=== PATIENT | female | born 2000 | race Caucasian/White ===

== ENCOUNTER → 2018-04-11 | Outpatient (CLI) | payer OTHER ==
[2018-04-11 09:17] LABS: BASO % 0.2 % (0.0-1.0); EOS # 0.2 10^3/uL (0.0-0.50); EOS % 2.1 % (0.0-3.0); HEMATOCRIT 39.6 % (36.0-47.0); HEMOGLOBIN 12.9 g/dl (12.0-15.5); IMMATURE GRANULOCYTE % 0.3 % (0-3.0); LYMPH # 2.6 10^3/uL (1.5-6.5); LYMPH % 30.3 % (24.0-44.0); MEAN CORPUSCULAR HEMOGLOBIN 29.1 pg (27.0-33.0); MEAN CORPUSCULAR HGB CONC 32.6 g/dl (32.0-36.5); MEAN CORPUSCULAR VOLUME 89.2 fl (80.0-96.0); MONO # 0.6 10^3/uL (0.0-0.8); MONO % 6.9 % (0.0-5.0); NEUTROPHILS # 5.2 10^3/uL (1.8-7.7); NEUTROPHILS % 60.2 % (36.0-66.0); PLATELET COUNT, AUTOMATED 266 10^3/uL (150-450); RED BLOOD COUNT 4.44 10^6/uL (4.00-5.40); RED CELL DISTRIBUTION WIDTH 11.6 % (11.5-14.5); WHITE BLOOD COUNT 8.7 10^3/uL (4.0-10.0)
[2018-04-11 09:51] LABS: ALBUMIN 3.8 GM/DL (3.2-5.2); ALBUMIN/GLOBULIN RATIO 1.15 (1.00-1.93); ALKALINE PHOSPHATASE 64 U/L (45-117); ALT/SGPT 19 U/L (12-78); ANION GAP 9 MEQ/L (8-16); AST/SGOT 10 U/L (7-37); BILIRUBIN,TOTAL 0.4 MG/DL (0.2-1.0); BLOOD UREA NITROGEN 8 MG/DL (7-18); CALCIUM LEVEL 8.8 MG/DL (8.5-10.1); CARBON DIOXIDE LEVEL 27 MEQ/L (21-32); CHLORIDE LEVEL 106 MEQ/L (98-107); CHOLESTEROL LEVEL 156 MG/DL (<200); CHOLESTEROL RISK RATIO 2.557 (<5); CREATININE FOR GFR 0.76 MG/DL (0.55-1.30); GLUCOSE, FASTING 114 MG/DL (70-100); HDL CHOLESTEROL 61 MG/DL (>40); LDL CHOLESTEROL 83.2 MG/DL (<100); NON-HDL-C 95 MG/DL; POTASSIUM SERUM 4.4 MEQ/L (3.5-5.1); SODIUM LEVEL 142 MEQ/L (136-145); THYROID STIMULATING HORMONE 0.982 uIU/ML (0.463-3.98); TOTAL PROTEIN 7.1 GM/DL (6.4-8.2); TRIGLYCERIDES LEVEL 59 MG/DL (<150)
== END ==
LOC: M LAB 08:08
DX: Z00.00 Encounter for general adult medical examination without abnormal findings (principal)
CPT/HCPCS: 84443

== ENCOUNTER → 2019-11-26 | Outpatient (REF) | payer OTHER ==
[2019-11-26 12:33] LABS: FOLLICLE STIMULATING HORMONE 6.2 mIU/mL; FREE T4 1.06 NG/DL (0.76-1.46); LUTEINIZING HORMONE 2.4 mIU/mL; THYROID STIMULATING HORMONE 0.602 uIU/ML (0.358-3.740)
[2019-11-26 19:31] LABS: HEMOGLOBIN A1c 8.9 %
== END ==
LOC: M PLALAB 10:28
PROVIDERS: ATTEND Nurse Practitioner Women's Health
DX: N92.6 Irregular menstruation, unspecified (principal)

== ENCOUNTER → 2019-11-27 | Outpatient (CLI) | payer OTHER ==
--- NOTE | 2019-11-28 07:58 | REP ---
Clinical: Irregular menstrual cycles. Technique: Transabdominal pelvic ultrasound with color Doppler evaluation of the ovaries. Findings: Bladder is normal and measures 14.5 x 11.6 x 6.1 cm. Normal anteverted uterus measures 7.3 x 3.5 x 4.7 cm. Endometrial complex measures 3.0 mm thickness. No discrete uterine or endometrial abnormalities appreciated. Bilateral ovaries are normal in appearance and vascularity without torsion. Right ovary measures 3.6 x 1.9 x 3.2 cm (RI 0.55). Left ovary measures 3.2 x 1.6 x 2.5 cm (RI 0.60). No pelvic fluid or adnexal mass lesion. Impression: Normal pelvic ultrasound.
== END ==
LOC: M WHC 14:32
PROVIDERS: ATTEND Nurse Practitioner Women's Health
DX: N92.6 Irregular menstruation, unspecified (principal)

== ENCOUNTER 2023-10-07 11:43 | Inpatient (IN) | payer BC, OTHER ==
[~2023-10-07] VITALS: Ht 172.7 cm; Wt 73.2 kg
[2023-10-07] MEDS ORDERED: NS 1,000 ML IV ONE ×3 (12:10→15:00)
[2023-10-07] MEDS ORDERED: ONDANSETRON 4MG 2ML VIAL IV ONE (12:45)
[2023-10-07 12:51] LABS: VENOUS BASE EXCESS -23.8 (-2.0-2.0); VENOUS HCO3 5.9 MMOL/L (23.0-27.0); VENOUS O2 SATURATION 64.8 % (60.0-80.0); VENOUS PARTIAL PRESSURE CO2 23.4 mmHg (38.0-50.0); VENOUS PARTIAL PRESSURE O2 36.1 mmHg (30.0-50.0); VENOUS PH 7.016 UNITS (7.330-7.430); VENOUS TOTAL CO2 6.6 MMOL/L (24.0-28.0)
[2023-10-07 12:54] LABS: BASO # 0.1 10^3/uL (0.0-0.2); BASO % 0.7 % (0.0-1.0); EOS % 0.2 % (0.0-3.0); HEMATOCRIT 47.4 % (36.0-47.0); HEMOGLOBIN 15.2 g/dl (12.0-15.5); LYMPH # 1.4 10^3/uL (1.5-5.0); LYMPH % 13.1 % (24.0-44.0); MEAN CORPUSCULAR HGB CONC 32.1 g/dl (32.0-36.5); MONO # 0.4 10^3/uL (0.0-0.8); MONO % 3.9 % (2.0-8.0); NEUTROPHILS # 8.3 10^3/uL (1.5-8.5); NEUTROPHILS % 80.5 % (36.0-66.0); PLATELET COUNT, AUTOMATED 532 10^3/uL (150-450); WHITE BLOOD COUNT 10.4 10^3/uL (4.0-10.0)
[2023-10-07 13:13] LABS: HCG, SERUM QUALITATIVE NEGATIVE (NEGATIVE); LIPASE 65 U/L (12-53)
[2023-10-07] MEDS ORDERED: INSULIN REGULAR IN 0.9 % NACL 100 UNIT in IV 1 EA IV SCH ×6 (13:15→14:25)
[2023-10-07] MEDS ORDERED: INSULIN IV RATE CHANGE DOCUMENTATION ML/HR XX SCH ×3 (13:15→14:25)
[2023-10-07 13:18] LABS: ACETONE/KETONE > 4.50 MMOL/L (0.02-0.27)
[2023-10-07 13:22] LABS: HEMOGLOBIN A1c 9.5 % (4.0-6.0)
[2023-10-07 13:23] LABS: OSMOLALITY SERUM 335 MOSM/KG (275-295)
[2023-10-07 13:32] LABS: SALICYLATE LEVEL < 3.0 MG/DL (<30)
[2023-10-07 13:35] LABS: ALKALINE PHOSPHATASE 247 U/L (46-116); ALT/SGPT 54 U/L (7.0-40); AST/SGOT 32 U/L (<34); BILIRUBIN,DIRECT < 0.1 MG/DL (<0.4); BILIRUBIN,TOTAL 0.2 MG/DL (0.3-1.2); BLOOD UREA NITROGEN 14 MG/DL (9-23); CALCIUM LEVEL 9.3 MG/DL (8.5-10.1); CARBON DIOXIDE LEVEL < 10.0 MMOL/L (20-31); CHLORIDE LEVEL 101 MMOL/L (98-107); CREATININE FOR GFR 0.87 MG/DL (0.55-1.30); GLOMERULAR FILTRATION RATE > 60.0 (>60); GLUCOSE, FASTING 240 MG/DL (60-100); PHOSPHORUS LEVEL 4.5 MG/DL (2.5-4.9); POTASSIUM SERUM 4.2 MMOL/L (3.5-5.1); SODIUM LEVEL 133 MMOL/L (136-145); TOTAL PROTEIN 8.4 G/DL (5.7-8.2)
[2023-10-07] MEDS ORDERED: MED REC IN PROGRESS XX SCH (14:05)
[2023-10-07] MEDS: D5W/0.45% SODIUM CHLORIDE 1,000 ML IV SCH ×2 (14:32→16:09)
[2023-10-07] MEDS ORDERED: HUMA100I5 SC (14:35)
[2023-10-07] MEDS ORDERED: VITAD400CA PO (14:35)
[2023-10-07] MEDS ORDERED: BASA100I SC (14:35)
[2023-10-07] MEDS ORDERED: ATOR1TAB21 PO (14:35)
[2023-10-07] MEDS ORDERED: MULT-90 PO (14:35)
[2023-10-07] MEDS ORDERED: HOME MED LIST COMPLETE! XX SCH (14:45)
[2023-10-07 16:00] VITALS: BP 112/58; TEMP 98.9; O2SAT 100
[2023-10-07] MEDS ORDERED: DEXTROSE 50% 50ML SYRINGE IV STA (17:03)
[2023-10-07] MEDS: D10W/0.45% SODIUM CHLORIDE 1,000 ML IV SCH (17:56)
[2023-10-07 18:02] LABS: BLOOD UREA NITROGEN 10 MG/DL (9-23); CALCIUM LEVEL 7.4 MG/DL (8.5-10.1); CARBON DIOXIDE LEVEL 16 MMOL/L (20-31); CHLORIDE LEVEL 109 MMOL/L (98-107); CREATININE FOR GFR 0.66 MG/DL (0.55-1.30); GLOMERULAR FILTRATION RATE > 60.0 (>60); GLUCOSE, FASTING 331 MG/DL (60-100); PHOSPHORUS LEVEL 1.8 MG/DL (2.5-4.9); POTASSIUM SERUM 3.7 MMOL/L (3.5-5.1); SODIUM LEVEL 136 MMOL/L (136-145)
[2023-10-07] MEDS ORDERED: INSULIN LISPRO (NovoLOG) PER UNIT SC ONE (18:35)
[2023-10-07] MEDS ORDERED: CALCIUM GLUCONATE 1,000 MG in D5W MINI-BAG PLUS 100 ML IV ONE (19:00)
[2023-10-07] MEDS ORDERED: KCL 10MEQ/100ML SWI (KRUN) 10 MEQ in IV 1 EA IV SCH (19:00)
[2023-10-07] MEDS ORDERED: LEVEMIR (INSULIN DETEMIR) 1 UNITS/0.01ML SC SCH (19:00)
[2023-10-07] MEDS: POTASSIUM CHLORIDE 10% LIQ 20MEQ/15ML UDC PO SCH ×2 (19:25→21:26)
[2023-10-07 19:30] VITALS: BP 100/58; TEMP 99; O2SAT 100
[2023-10-07] MEDS ORDERED: BENZONATATE 100MG CAPSULE PO ONE (19:45)
[2023-10-07] MEDS ORDERED: AZELASTINE 137MCG NASAL SPY 30 ML (ASTELIN) ONE (19:50)
[2023-10-07] MEDS ORDERED: ACETAMINOPHEN TAB 650MG DOSE (2X325MG) PO ONE (19:50)
[2023-10-07] MEDS: ENOXAPARIN 40MG/0.4ML SYRINGE (J1650 PER 10MG) SC SCH (20:32)
[2023-10-07] MEDS ORDERED: SODIUM PHOSPHATE INJ 20 MMOL in D5W 250 ML IV ONE (21:00)
[2023-10-07] MEDS ORDERED: ATORVASTATIN 20 MG TAB PO SCH (21:00)
[2023-10-07 22:00] LABS: BLOOD UREA NITROGEN 9 MG/DL (9-23); CALCIUM LEVEL 8.7 MG/DL (8.5-10.1); CARBON DIOXIDE LEVEL 11 MMOL/L (20-31); CHLORIDE LEVEL 109 MMOL/L (98-107); CREATININE FOR GFR 0.72 MG/DL (0.55-1.30); GLOMERULAR FILTRATION RATE > 60.0 (>60); GLUCOSE, FASTING 150 MG/DL (60-100); PHOSPHORUS LEVEL 2.6 MG/DL (2.5-4.9); POTASSIUM SERUM 4.5 MMOL/L (3.5-5.1); SODIUM LEVEL 137 MMOL/L (136-145)
[2023-10-07 23:39] VITALS: BP 107/51; TEMP 98.7; O2SAT 100
[2023-10-08 01:31] LABS: BLOOD UREA NITROGEN 7 MG/DL (9-23); CALCIUM LEVEL 8.6 MG/DL (8.5-10.1); CARBON DIOXIDE LEVEL 15 MMOL/L (20-31); CHLORIDE LEVEL 109 MMOL/L (98-107); CREATININE FOR GFR 0.63 MG/DL (0.55-1.30); GLOMERULAR FILTRATION RATE > 60.0 (>60); GLUCOSE, FASTING 171 MG/DL (60-100); PHOSPHORUS LEVEL 4.2 MG/DL (2.5-4.9); POTASSIUM SERUM 4.2 MMOL/L (3.5-5.1); SODIUM LEVEL 138 MMOL/L (136-145)
[2023-10-08] MEDS: D10W/0.45% SODIUM CHLORIDE 1,000 ML IV SCH ×2 (02:15→08:36)
[2023-10-08] MEDS ORDERED: INSULIN REGULAR IN 0.9 % NACL 100 UNIT in IV 1 EA IV SCH ×2 (02:16)
[2023-10-08 04:19] VITALS: BP 113/59; TEMP 98; O2SAT 100
[2023-10-08 05:03] LABS: BLOOD UREA NITROGEN 6 MG/DL (9-23); CALCIUM LEVEL 8.9 MG/DL (8.5-10.1); CARBON DIOXIDE LEVEL 16 MMOL/L (20-31); CHLORIDE LEVEL 107 MMOL/L (98-107); CREATININE FOR GFR 0.58 MG/DL (0.55-1.30); GLOMERULAR FILTRATION RATE > 60.0 (>60); GLUCOSE, FASTING 147 MG/DL (60-100); POTASSIUM SERUM 3.9 MMOL/L (3.5-5.1); SODIUM LEVEL 139 MMOL/L (136-145)
[2023-10-08 07:15] VITALS: BP 101/59; TEMP 97.7; O2SAT 100
[2023-10-08 07:49] LABS: CHOLESTEROL LEVEL 247 MG/DL (<200); CHOLESTEROL RISK RATIO 6.38 (<5); HDL CHOLESTEROL 38.7 MG/DL (>40); NON-HDL-C 208.3 MG/DL; TRIGLYCERIDES LEVEL 457 MG/DL (<150)
[2023-10-08] MEDS ORDERED: LEVEMIR (INSULIN DETEMIR) 1 UNITS/0.01ML SC SCH ×2 (09:00→21:00)
[2023-10-08] MEDS ORDERED: OMEGA-3 1000MG CAPSULE PO SCH ×2 (09:00→21:00)
[2023-10-08 09:20] LABS: BLOOD UREA NITROGEN 5 MG/DL (9-23); CALCIUM LEVEL 8.9 MG/DL (8.5-10.1); CARBON DIOXIDE LEVEL 19 MMOL/L (20-31); CHLORIDE LEVEL 106 MMOL/L (98-107); CREATININE FOR GFR 0.54 MG/DL (0.55-1.30); GLOMERULAR FILTRATION RATE > 60.0 (>60); GLUCOSE, FASTING 153 MG/DL (60-100); POTASSIUM SERUM 4.1 MMOL/L (3.5-5.1); SODIUM LEVEL 138 MMOL/L (136-145)
[2023-10-08 11:18] VITALS: BP 126/65; TEMP 98.4; O2SAT 100
[2023-10-08] MEDS ORDERED: GLUCOSE 4GM CHEW TABLET PO PRN (11:25)
[2023-10-08] MEDS ORDERED: GLUCAGON INJ 1MG VIAL SC PRN (11:25)
[2023-10-08] MEDS ORDERED: DEXTROSE 50% 50ML SYRINGE IV PRN (11:25)
[2023-10-08] MEDS: INSULIN LISPRO (NovoLOG) PER UNIT SC SCH ×2 (12:07→17:30)
[2023-10-08 12:37] LABS: BLOOD UREA NITROGEN 6 MG/DL (9-23); CALCIUM LEVEL 8.8 MG/DL (8.5-10.1); CARBON DIOXIDE LEVEL 20 MMOL/L (20-31); CHLORIDE LEVEL 106 MMOL/L (98-107); CREATININE FOR GFR 0.66 MG/DL (0.55-1.30); GLOMERULAR FILTRATION RATE > 60.0 (>60); GLUCOSE, FASTING 188 MG/DL (60-100); POTASSIUM SERUM 3.7 MMOL/L (3.5-5.1); SODIUM LEVEL 138 MMOL/L (136-145)
[2023-10-08 15:46] VITALS: BP 125/63; TEMP 98.9; O2SAT 100
[2023-10-08 17:35] LABS: BLOOD UREA NITROGEN 9 MG/DL (9-23); CALCIUM LEVEL 9.3 MG/DL (8.5-10.1); CARBON DIOXIDE LEVEL 24 MMOL/L (20-31); CHLORIDE LEVEL 105 MMOL/L (98-107); CREATININE FOR GFR 0.59 MG/DL (0.55-1.30); GLOMERULAR FILTRATION RATE > 60.0 (>60); GLUCOSE, FASTING 75 MG/DL (60-100); POTASSIUM SERUM 3.3 MMOL/L (3.5-5.1); SODIUM LEVEL 137 MMOL/L (136-145)
[2023-10-08] MEDS ORDERED: POTASSIUM CHLORIDE 10MEQ SR TABLET PO ONE (19:00)
[2023-10-08 20:00] VITALS: BP 117/62; TEMP 99; O2SAT 100
[2023-10-08] MEDS ORDERED: INSULIN LISPRO (NovoLOG) PER UNIT SC ONE (20:55)
[2023-10-08] MEDS ORDERED: ATORVASTATIN 20 MG TAB PO SCH ×2 (21:00)
[2023-10-08] MEDS: ENOXAPARIN 40MG/0.4ML SYRINGE (J1650 PER 10MG) SC SCH (21:00)
[2023-10-08] MEDS ORDERED: INSULIN LISPRO (NovoLOG) PER UNIT SC SCH (21:00)
[2023-10-09 06:01] LABS: BLOOD UREA NITROGEN 7 MG/DL (9-23); CALCIUM LEVEL 8.9 MG/DL (8.5-10.1); CARBON DIOXIDE LEVEL 24 MMOL/L (20-31); CHLORIDE LEVEL 105 MMOL/L (98-107); CREATININE FOR GFR 0.48 MG/DL (0.55-1.30); GLOMERULAR FILTRATION RATE > 60.0 (>60); GLUCOSE, FASTING 180 MG/DL (60-100); POTASSIUM SERUM 3.8 MMOL/L (3.5-5.1); SODIUM LEVEL 139 MMOL/L (136-145)
[2023-10-09] MEDS: INSULIN LISPRO (NovoLOG) PER UNIT SC SCH ×2 (08:31→12:46)
[2023-10-09 08:39] VITALS: BP 114/62; TEMP 97.6; O2SAT 97
[2023-10-09] MEDS ORDERED: LEVEMIR (INSULIN DETEMIR) 1 UNITS/0.01ML SC SCH (09:00)
[2023-10-09] MEDS ORDERED: OLANZapine 2.5MG TABLET PO ONE (15:15)
[2023-10-09] MEDS ORDERED: ADME100I SC ×3 (15:19→15:43)
[2023-10-09] MEDS ORDERED: FISH1CAP26 PO (15:19)
== END 2023-10-09 16:30 | disposition home or self-care (01) | DRG 420 ==
LOC: M ED 11:43 → M ED INP 13:58 → M ICU 15:51
PROVIDERS: ADMIT Internal Medicine Pulmonary Disease; ATTEND Internal Medicine
DX: E10.10 Type 1 diabetes mellitus with ketoacidosis without coma (principal); E78.1 Pure hyperglyceridemia; Z79.4 Long term (current) use of insulin; Z79.899 Other long term (current) drug therapy; E78.5 Hyperlipidemia, unspecified

== ENCOUNTER 2024-04-01 07:56 | Inpatient (IN) | payer BC ==
[2024-04-01] VITALS (31 sets, daily range): BP systolic 124–149; BP diastolic 61–97; TEMP 97.9–98.2; O2SAT 97–100
[~2024-04-01] VITALS: Ht 172.7 cm; Wt 74.2 kg
[~2024-04-01 07:56] MED LIST: ADME100I SC; ATOR1TAB21 PO; BASA100I SC; FISH1CAP26 PO; HUMA100I5 SC; MULT-90 PO; VITAD400CA PO
[2024-04-01] MEDS: NS 1,000 ML IV ONE ×2 (08:47→11:27)
[2024-04-01 08:57] LABS: VENOUS BASE EXCESS -26.8 (-2.0-2.0); VENOUS HCO3 3.3 MMOL/L (23.0-27.0); VENOUS O2 SATURATION 97.4 % (60.0-80.0); VENOUS PARTIAL PRESSURE CO2 14.7 mmHg (38.0-50.0); VENOUS PARTIAL PRESSURE O2 119.7 mmHg (30.0-50.0); VENOUS PH 6.971 UNITS (7.330-7.430); VENOUS STANDARD HCO3 7.1 MMOL/L; VENOUS TOTAL CO2 3.8 MMOL/L (24.0-28.0)
[2024-04-01] MEDS ORDERED: INSULIN IV RATE CHANGE DOCUMENTATION ML/HR XX SCH ×3 (09:15→12:45)
[2024-04-01 09:19] LABS: BASO # 0.1 10^3/uL (0.0-0.2); BASO % 0.5 % (0.0-1.0); HEMATOCRIT 48.8 % (36.0-47.0); HEMOGLOBIN 15.7 g/dl (12.0-15.5); LYMPH # 2.2 10^3/uL (1.5-5.0); LYMPH % 13.8 % (24.0-44.0); MEAN CORPUSCULAR HEMOGLOBIN 32.4 pg (27.0-33.0); MEAN CORPUSCULAR HGB CONC 32.2 g/dl (32.0-36.5); MEAN CORPUSCULAR VOLUME 100.8 fl (80.0-96.0); MONO # 0.6 10^3/uL (0.0-0.8); MONO % 3.8 % (2.0-8.0); NEUTROPHILS # 12.5 10^3/uL (1.5-8.5); NEUTROPHILS % 79.9 % (36.0-66.0); PLATELET COUNT, AUTOMATED 518 10^3/uL (150-450); RED BLOOD COUNT 4.84 10^6/uL (4.00-5.40); WHITE BLOOD COUNT 15.6 10^3/uL (4.0-10.0)
[2024-04-01 09:26] LABS: HEMOGLOBIN A1c 11.7 % (4.0-6.0)
[2024-04-01 09:27] LABS: ETHYL ALCOHOL (ETHANOL) 0.004 % (0.000-0.010)
[2024-04-01 09:28] LABS: SALICYLATE LEVEL < 3.0 MG/DL (<30)
[2024-04-01 09:35] LABS: OSMOLALITY SERUM 351 MOSM/KG (275-295)
[2024-04-01 09:39] LABS: ACETONE/KETONE > 4.50 MMOL/L (0.02-0.27); ALBUMIN 3.9 G/DL (3.2-5.2); ALKALINE PHOSPHATASE 276 U/L (46-116); ALT/SGPT 85 U/L (7.0-40); AST/SGOT 79 U/L (<34); BILIRUBIN,DIRECT < 0.1 MG/DL (<0.4); BILIRUBIN,TOTAL 0.3 MG/DL (0.3-1.2); BLOOD UREA NITROGEN 26 MG/DL (9-23); CALCIUM LEVEL 9.4 MG/DL (8.5-10.1); CARBON DIOXIDE LEVEL < 10.0 MMOL/L (20-31); CHLORIDE LEVEL 97 MMOL/L (98-107); CREATININE FOR GFR 1.04 MG/DL (0.55-1.30); GLOMERULAR FILTRATION RATE > 60.0 (>60); GLUCOSE, FASTING 614 MG/DL (60-100); LIPASE 26 U/L (12-53); MAGNESIUM LEVEL 2.2 MG/DL (1.8-2.4); POTASSIUM SERUM 5.4 MMOL/L (3.5-5.1); SODIUM LEVEL 133 MMOL/L (136-145); TOTAL PROTEIN 8.1 G/DL (5.7-8.2)
[2024-04-01] MEDS: HumuLIN R (REGULAR) INSULIN (NovoLIN R) **100U/ML** PER UNIT IV ONE (10:00)
[2024-04-01] MEDS: INSULIN REGULAR IN 0.9 % NACL 100 UNIT in IV 1 EA IV SCH ×2 (10:01→13:04)
[2024-04-01 10:29] LABS: AMPHETAMINES LEVEL URINE NEGATIVE (NEGATIVE); BARBITURATES URINE NEGATIVE (NEGATIVE); BENZODIAZEPINES URINE NEGATIVE (NEGATIVE); CANNABINOIDS URINE NEGATIVE (NEGATIVE); COCAINE METABOLITE URINE NEGATIVE (NEGATIVE); METHADONE URINE NEGATIVE (NEGATIVE); OPIATES URINE NEGATIVE (NEGATIVE); PHENCYCLIDINE URINE NEGATIVE (NEGATIVE)
[2024-04-01] MEDS ORDERED: D5W/0.9% SODIUM CHLORIDE 1,000 ML IV SCH (11:10)
[2024-04-01] MEDS ORDERED: D31000CA4 PO (11:19)
[2024-04-01] MEDS ORDERED: INSULADS INJ (11:19)
[2024-04-01] MEDS ORDERED: CALC500T61 PO (11:21)
[2024-04-01] MEDS ORDERED: ALBUTEROL SULFATE 2.5MG/0.5ML INH NEB SOLN NEB PRN (11:35)
[2024-04-01] MEDS ORDERED: INSULIN REGULAR IN 0.9 % NACL 100 UNIT in IV 1 EA IV SCH (11:45)
[2024-04-01 11:50] LABS: VENOUS BASE EXCESS -20.1 (-2.0-2.0); VENOUS HCO3 7.2 MMOL/L (23.0-27.0); VENOUS PARTIAL PRESSURE O2 44.6 mmHg (30.0-50.0); VENOUS PH 7.131 UNITS (7.330-7.430); VENOUS STANDARD HCO3 10.1 MMOL/L; VENOUS TOTAL CO2 7.8 MMOL/L (24.0-28.0)
[2024-04-01] MEDS: LR 1,000 ML IV ONE (12:01)
[2024-04-01] MEDS ORDERED: INSUHUMDS SC (12:19)
[2024-04-01] MEDS ORDERED: HOME MED LIST COMPLETE! XX SCH (12:20)
[2024-04-01] MEDS: ENOXAPARIN 40MG/0.4ML SYRINGE (J1650 PER 10MG) SC SCH (12:28)
[2024-04-01 12:29] LABS: BLOOD UREA NITROGEN 23 MG/DL (9-23); CALCIUM LEVEL 8.9 MG/DL (8.5-10.1); CARBON DIOXIDE LEVEL < 10.0 MMOL/L (20-31); CHLORIDE LEVEL 106 MMOL/L (98-107); CREATININE FOR GFR 1.02 MG/DL (0.55-1.30); GLOMERULAR FILTRATION RATE > 60.0 (>60); GLUCOSE, FASTING 104 MG/DL (60-100); POTASSIUM SERUM 4.5 MMOL/L (3.5-5.1); SODIUM LEVEL 139 MMOL/L (136-145)
[2024-04-01] MEDS: KCL 20MEQ IN D5/0.45NS 1000ML 1,000 ML IV SCH (13:02)
[2024-04-01 13:54] LABS: VENOUS BASE EXCESS -12.7 (-2.0-2.0); VENOUS HCO3 11.5 MMOL/L (23.0-27.0); VENOUS O2 SATURATION 99.3 % (60.0-80.0); VENOUS PARTIAL PRESSURE CO2 23.3 mmHg (38.0-50.0); VENOUS PARTIAL PRESSURE O2 147.7 mmHg (30.0-50.0); VENOUS PH 7.311 UNITS (7.330-7.430); VENOUS STANDARD HCO3 14.8 MMOL/L; VENOUS TOTAL CO2 12.2 MMOL/L (24.0-28.0)
[2024-04-01 17:07] LABS: BLOOD UREA NITROGEN 18 MG/DL (9-23); CALCIUM LEVEL 8.9 MG/DL (8.5-10.1); CARBON DIOXIDE LEVEL 15 MMOL/L (20-31); CHLORIDE LEVEL 110 MMOL/L (98-107); CREATININE FOR GFR 0.71 MG/DL (0.55-1.30); GLOMERULAR FILTRATION RATE > 60.0 (>60); GLUCOSE, FASTING 101 MG/DL (60-100); SODIUM LEVEL 141 MMOL/L (136-145)
[2024-04-01] MEDS: INSULIN LISPRO (NovoLOG) PER UNIT SC SCH ×2 (18:00→21:00)
[2024-04-01 19:38] LABS: BLOOD UREA NITROGEN 16 MG/DL (9-23); CALCIUM LEVEL 8.8 MG/DL (8.5-10.1); CARBON DIOXIDE LEVEL 16 MMOL/L (20-31); CHLORIDE LEVEL 111 MMOL/L (98-107); CREATININE FOR GFR 0.71 MG/DL (0.55-1.30); GLOMERULAR FILTRATION RATE > 60.0 (>60); GLUCOSE, FASTING 122 MG/DL (60-100); SODIUM LEVEL 141 MMOL/L (136-145)
[2024-04-01] MEDS ORDERED: GLUCAGON INJ 1MG VIAL SC PRN (20:10)
[2024-04-01] MEDS ORDERED: DEXTROSE 50% 50ML SYRINGE IV PRN (20:10)
[2024-04-01] MEDS ORDERED: GLUCOSE 4 GM CHEW PO PRN (20:10)
[2024-04-01] MEDS: LEVEMIR (INSULIN DETEMIR) 1 UNITS/0.01ML SC SCH (20:32)
[2024-04-01 22:55] LABS: BLOOD UREA NITROGEN 14 MG/DL (9-23); CALCIUM LEVEL 8.1 MG/DL (8.5-10.1); CARBON DIOXIDE LEVEL 16 MMOL/L (20-31); CHLORIDE LEVEL 109 MMOL/L (98-107); CREATININE FOR GFR 0.63 MG/DL (0.55-1.30); GLOMERULAR FILTRATION RATE > 60.0 (>60); GLUCOSE, FASTING 229 MG/DL (60-100); POTASSIUM SERUM 4.1 MMOL/L (3.5-5.1); SODIUM LEVEL 138 MMOL/L (136-145)
[2024-04-02] VITALS (30 sets, daily range): BP systolic 116–143; BP diastolic 55–84; TEMP 97.1–98; O2SAT 97–100
[2024-04-02 05:25] LABS: BASO % 0.2 % (0.0-1.0); EOS # 0.1 10^3/uL (0.0-0.5); EOS % 0.6 % (0.0-3.0); LYMPH # 2.5 10^3/uL (1.5-5.0); LYMPH % 28.1 % (24.0-44.0); MEAN CORPUSCULAR HEMOGLOBIN 31.9 pg (27.0-33.0); MEAN CORPUSCULAR HGB CONC 33.5 g/dl (32.0-36.5); MEAN CORPUSCULAR VOLUME 95.1 fl (80.0-96.0); MONO # 0.9 10^3/uL (0.0-0.8); MONO % 9.8 % (2.0-8.0); NEUTROPHILS # 5.4 10^3/uL (1.5-8.5); NEUTROPHILS % 60.6 % (36.0-66.0); RED BLOOD COUNT 3.67 10^6/uL (4.00-5.40); WHITE BLOOD COUNT 8.9 10^3/uL (4.0-10.0)
[2024-04-02 05:36] LABS: HEMATOCRIT 34.9 % (36.0-47.0); HEMOGLOBIN 11.7 g/dl (12.0-15.5); PLATELET COUNT, AUTOMATED 271 10^3/uL (150-450)
[2024-04-02 06:04] LABS: ALBUMIN 2.6 G/DL (3.2-5.2); ALKALINE PHOSPHATASE 176 U/L (46-116); ALT/SGPT 54 U/L (7.0-40); AST/SGOT 57 U/L (<34); BILIRUBIN,TOTAL 0.4 MG/DL (0.3-1.2); BLOOD UREA NITROGEN 12 MG/DL (9-23); CALCIUM LEVEL 8.9 MG/DL (8.5-10.1); CARBON DIOXIDE LEVEL 19 MMOL/L (20-31); CHLORIDE LEVEL 111 MMOL/L (98-107); CREATININE FOR GFR 0.64 MG/DL (0.55-1.30); GLOMERULAR FILTRATION RATE > 60.0 (>60); GLUCOSE, FASTING 74 MG/DL (60-100); MAGNESIUM LEVEL 1.8 MG/DL (1.8-2.4); PHOSPHORUS LEVEL 2.5 MG/DL (2.5-4.9); SODIUM LEVEL 140 MMOL/L (136-145); TOTAL PROTEIN 5.3 G/DL (5.7-8.2)
[2024-04-02] MEDS: POTASSIUM CHLORIDE 10MEQ SR TABLET PO ONE ×2 (08:04→10:44)
[2024-04-02 13:58] LABS: BLOOD UREA NITROGEN 15 MG/DL (9-23); CALCIUM LEVEL 9.5 MG/DL (8.5-10.1); CARBON DIOXIDE LEVEL 19 MMOL/L (20-31); CHLORIDE LEVEL 107 MMOL/L (98-107); CREATININE FOR GFR 0.63 MG/DL (0.55-1.30); GLOMERULAR FILTRATION RATE > 60.0 (>60); GLUCOSE, FASTING 142 MG/DL (60-100); POTASSIUM SERUM 3.6 MMOL/L (3.5-5.1); SODIUM LEVEL 137 MMOL/L (136-145)
[2024-04-02] MEDS: LEVEMIR (INSULIN DETEMIR) 1 UNITS/0.01ML SC SCH (21:03)
[2024-04-03] VITALS: TEMP 97.4; O2SAT 98
[2024-04-03 04:00] VITALS: BP 124/79; TEMP 97.9; O2SAT 98
[2024-04-03 05:19] LABS: BASO % 0.4 % (0.0-1.0); EOS # 0.1 10^3/uL (0.0-0.5); EOS % 1.4 % (0.0-3.0); HEMATOCRIT 34.3 % (36.0-47.0); HEMOGLOBIN 11.3 g/dl (12.0-15.5); LYMPH % 49.4 % (24.0-44.0); MEAN CORPUSCULAR HEMOGLOBIN 31.4 pg (27.0-33.0); MEAN CORPUSCULAR HGB CONC 32.9 g/dl (32.0-36.5); MEAN CORPUSCULAR VOLUME 95.3 fl (80.0-96.0); MONO # 0.6 10^3/uL (0.0-0.8); NEUTROPHILS # 3.3 10^3/uL (1.5-8.5); NEUTROPHILS % 41.3 % (36.0-66.0); PLATELET COUNT, AUTOMATED 261 10^3/uL (150-450)
[2024-04-03 05:56] LABS: HEPATITIS B SURFACE ANTIGEN NEGATIVE (NEGATIVE)
[2024-04-03 06:03] LABS: ALBUMIN 2.8 G/DL (3.2-5.2); ALKALINE PHOSPHATASE 180 U/L (46-116); ALT/SGPT 65 U/L (7.0-40); AST/SGOT 79 U/L (<34); BILIRUBIN,TOTAL 0.3 MG/DL (0.3-1.2); BLOOD UREA NITROGEN 16 MG/DL (9-23); CALCIUM LEVEL 8.9 MG/DL (8.5-10.1); CARBON DIOXIDE LEVEL 23 MMOL/L (20-31); CHLORIDE LEVEL 110 MMOL/L (98-107); CREATININE FOR GFR 0.61 MG/DL (0.55-1.30); GLOMERULAR FILTRATION RATE > 60.0 (>60); GLUCOSE, FASTING 50 MG/DL (60-100); SODIUM LEVEL 143 MMOL/L (136-145); TOTAL PROTEIN 5.6 G/DL (5.7-8.2)
[2024-04-03 06:15] LABS: HEPATITIS B CORE ANTIBODY IGM NEGATIVE (NEGATIVE)
[2024-04-03 06:16] LABS: HEPATITIS C VIRUS ABY INDEX < 0.02 INDEX (<0.8)
[2024-04-03] MEDS: POTASSIUM CHLORIDE 10MEQ SR TABLET PO ONE ×2 (06:31→08:47)
[2024-04-03 07:50] VITALS: BP 125/80; TEMP 97; O2SAT 95
[2024-04-03 11:32] VITALS: BP 126/83; TEMP 97; O2SAT 97
[2024-04-03] MEDS ORDERED: LANC1COM MC (12:01)
[2024-04-03] MEDS ORDERED: MAGN200T10 PO (12:01)
[2024-04-03] MEDS ORDERED: K-TA1TAB PO (12:01)
[2024-04-03] MEDS ORDERED: GLUCMIS7 XX (12:01)
[2024-04-03] MEDS ORDERED: INSUHUMDS SC (12:01)
[2024-04-03] MEDS ORDERED: INSULADS INJ (12:01)
[2024-04-03] MEDS ORDERED: [UNRECOGNIZED DRUG - CODE] MC (12:01)
[2024-04-03 12:59] LABS: BLOOD UREA NITROGEN 17 MG/DL (9-23); CALCIUM LEVEL 8.9 MG/DL (8.5-10.1); CARBON DIOXIDE LEVEL 22 MMOL/L (20-31); CHLORIDE LEVEL 105 MMOL/L (98-107); CREATININE FOR GFR 0.61 MG/DL (0.55-1.30); GLOMERULAR FILTRATION RATE > 60.0 (>60); GLUCOSE, FASTING 368 MG/DL (60-100); POTASSIUM SERUM 4.5 MMOL/L (3.5-5.1); SODIUM LEVEL 136 MMOL/L (136-145)
[2024-04-03] MEDS ORDERED: INSULANT SC (15:06)
== END 2024-04-03 15:17 | disposition home or self-care (01) | DRG 420 ==
LOC: M ED 07:56 → M ED INP 11:18 → M ICU 16:15
PROVIDERS: ADMIT Internal Medicine Pulmonary Disease; ATTEND Internal Medicine Pulmonary Disease
DX: E10.10 Type 1 diabetes mellitus with ketoacidosis without coma (principal); E87.6 Hypokalemia; Z79.4 Long term (current) use of insulin; Z79.899 Other long term (current) drug therapy